=== PATIENT | male | born 1980 | race Caucasian/White ===

== ENCOUNTER 2020-06-23 08:08 | Emergency (ER) | payer BC, SELFPAY ==
[2020-06-23 08:10] VITALS: BP 163/107; PULSE 72; RESP 16; TEMP 35.6; O2SAT 98; BMI 17.2
--- NOTE | 2020-06-23 08:21 | CT_ITS ---
STUDY: CT ABDOMEN AND PELVIS WITHOUT CONTRAST REASON FOR EXAM: Male, 39 years old. flank pain following a fall. RADIATION DOSAGE (If Supplied By Facility): CTDIvol = ( 9.55 ) mGy, DLP = ( 634.50 ) mGycm TECHNIQUE: Transaxial images were obtained from the dome of the diaphragm to the symphysis pubis without oral contrast, and without intravenous contrast. Sagittal and coronal images were reconstructed. Individualized dose optimization techniques were used for this CT. COMPARISON: Comparison is made with prior study dated 10/21/2009. FINDINGS: The visualized lung bases are unremarkable. The visualized portions of the heart are within normal limits. Normal liver. Normal gallbladder and extrahepatic biliary system. Normal spleen. Normal pancreas. Normal bilateral adrenal glands. Several tiny nonobstructive right intrarenal calculi. Mild degree of left hydronephrosis and left hydroureter due to a 4.3 mm calculus at the left ureterovesical junction. Normal visualized stomach. Normal small intestine. Normal colon. The patient is status post appendectomy. Normal abdominal aorta. Normal inferior vena cava. Normal retroperitoneum. Normal urinary bladder. There are prostatic calcifications. There is a moderate-sized left-sided inguinal hernia containing adipose tissue. Small umbilical hernia. There are mild degenerative changes of the visualized lumbar spine. Straightening of the normal lumbar lordosis. CT/Abdomen/Pelvis without Cont IMPRESSION: 4.3 mm calculus at the left ureterovesical junction with the left hydronephrosis and hydroureter. Nonobstructive right intrarenal calculi. Electronically Signed: Ollie Crawford MD at 9:10 EDT , Service support ,
--- NOTE | 2020-06-23 08:22 | ED.VIS.GEN ---
History of Present Illness Chief Complaint: Male Pain/Injury Narrative: Patient presents with left flank pain left abdominal pain radiating into his penis and testicle that started just a few hours ago. No fever or chills. No right-sided pain. He has some nausea but no vomiting he has no constipation or diarrhea. He has had similar symptoms with kidney stones in the past. Pain is sharp and stabbing and colicky. Past medical history: Prior kidney stones Medications: None Social history: Noncontributory Review of systems: All systems negative except as indicated General: Denies: Fever Eyes: Denies: Visual changes - bilaterally ENT: Denies: Rhinorrhea, Sore throat Cardiovascular: Denies: Chest pain Respiratory: Denies: Dyspnea, Cough Gastrointestinal: Left-sided abdominal pain. Back: Back pain as in HPI Genitourinary: Has been complaining of darker urine than the past few days but no current dysuria or hematuria. He does have the feeling of urgency. He has radiation of the flank and abdominal pain to the left testicle. Musculoskeletal: Denies: Myalgias Skin: Denies: Rash Neurological: Denies: Headache, no focal weakness Psych: Reports: negative Hematologic: Denies: Easy bruising, Easy bleeding Physical exam General: She is pacing around the room he appears in distress. Head: Normocephalic, Atraumatic Eyes: Conjunctiva not pale ENT: Moist mucous membranes Neck: Supple, Nontender, No lymphadenopathy Cardiovascular: Regular rate, Regular rhythm Respiratory: No distress, CTA bilaterally Abdomen: Soft, there is left-sided lower abdominal pain. No guarding or rebound. Back: Nontender, Normal Inspection. Some left-sided CVA tenderness but it cannot be reproduced well. : He has no reproducible testicle pain or penile pain Extremities: Nontender, No edema Skin: Normal color, No rash Neurological: No focal deficit Past Medical History - Allergies and Home Meds Allergies/Adverse Reactions: Allergies No Known Allergies Allergy (Verified 06/23/20 08:09) Diagnostic/Tx/Re-eval - Medical Decision Making Patient is found to have a kidney stone that is less than 5 mm he is now significantly improved. There is no evidence of infection I will refer to otherwise I will discharge him with analgesics. He was educated about kidney stones. ED Disposition - Plan for ED Patient: Disposition: Home or Assisted Living Diagnosis: Kidney stone on left side Instructions: ED Kidney Stone w/ Colic Prescriptions: Oxycodone HCl/Acetaminophen [Percocet 5/325] 1 tablet PO Q6H PRN PRN 3 Days #12 tab PRN Reason: Pain Prescription Printed Referrals: Gustavo Quinonse MD [Primary Care Provider] - Mario Covarrubias MD [STAFF PHYSICIAN] - 2 Days
[2020-06-23] MEDS: Morphine 4 MG/ML Syringe IV (08:32)
[2020-06-23] MEDS: Ondansetron 4 MG/2 ML Vial IV (08:33)
[2020-06-23] MEDS: Ketorolac 15 MG/ML Vial IV (08:33)
[2020-06-23] MEDS: 0.9% Normal Saline 1,000 ML 1000 ML IV (08:33)
[2020-06-23 08:49] LABS: Mucous, Urine 0 SEEN /hpf (<or=2+); White Blood Cells 0 SEEN /hpf (0-5)
[2020-06-23 08:50] LABS: Absolute Lymphocyte Count 1.65 X10^3/uL (0.83-4.51); Absolute Neutrophil Count 3.7 X10^3/uL (2.0-7.7); Basophil# 0.04 X10^3/uL; Basophil% 0.7 % (0-1); Eosinophil# 0.22 X10^3/uL; Eosinophils% 3.7 % (0-5); Hematocrit 42.8 % (40-54); Hemoglobin 14.7 g/dL (13.0-16.5); Lymphocyte # 1.65 X10^3/ul (4.0); Lymphocyte % 27.4 % (19-41); Mean Corp Hgb Conc 34.3 g/dL (32-36); Mean Corpuscular Hgb 29.3 pg (27.0-32.0); Mean Corpuscular Volume 85.4 fL (80-94); Mean Platelet Vol. 10.2 fl (6.2-12.0); Monocyte# 0.42 X10^3/uL; NRBC Flagged by Analyzer 0 % (0-5); Neutrophil # 3.68 X10^3/uL (2.7-7.7); Platelet Count 247 K/mm3 (150-450); RBC Distribution Width CV 13.1 % (11.6-14.6); RBC Distribution Width SD 39.8 fl (35.1-43.9); Red Blood Count 5.01 M/mm3 (4.6-6.2)
[2020-06-23 08:51] LABS: Color, Urine Yellow (Yellow); Glucose, Dipstick Normal (Normal); Ketone-Dipstick Negative (Negative); Leukocyte Esterase-Dipstick Negative /ul (Negative); Nitrite-Dipstick Negative (Negative); Occult Blood-Urine 250 /ul (Negative); Protein-Dipstick 30 mg/dl (Negative); Urine Bilirubin Dipstick Negative (Negative); Urine Clarity Cloudy (Clear); Urine Urobilinogen Normal (Normal)
[2020-06-23 08:59] LABS: Red Blood Cells-Urine > 100 SEEN /hpf (0-5)
[2020-06-23 09:00] LABS: Bacteria RARE /hpf (None Seen); Squamous Epithelial Cells - UA 0-5 SEEN /hpf (0-5)
[2020-06-23 09:09] LABS: AST(SGOT) 13 U/L (15-37); Alanine Aminotransfer ALT/SGPT 31 U/L (16-61); Albumin, Serum 3.9 g/dL (3.2-5.0); Alkaline Phosphatase 76 U/L (45-117); Anion Gap 5 (5-15); BUN 12 mg/dL (7-18); BUN/Creat Ratio 10.3 RATIO (10-20); Calcium,Total 8.7 mg/dL (8.5-10.1); Chloride 106 mmol/L (98-107); Creatinine, Serum 1.17 mg/dL (0.70-1.30); EST Glomerular Filtration Rate 73 mL/min (>60); Est Glom Filt Rate - Afr Amer 88 mL/min (>60); Estimated Creatinine Clearance 75.21 ml/min; Globulin 3.8 g/dL (2.2-4.2); Glucose 119 mg/dL (74-106); Potassium 3.8 mmol/L (3.5-5.1); Protein, Total 7.7 g/dL (6.4-8.2); Sodium Level 138 mmol/L (136-145)
== END 2020-06-23 10:57 | disposition home or self-care (01) ==
PROVIDERS: Emergency Provider Emergency Medicine; PCP Family Medicine
DX: N20.0 Calculus of kidney (principal); Z87.442 Personal history of urinary calculi
CPT/HCPCS: 74176; 80053; 81001; 85025; 96361; 96374; 96375; 99282; J7030; A4216; J2405

== ENCOUNTER → 2020-07-07 16:59 | Outpatient (CLI) | payer BC, SELFPAY ==
[2020-06-23 08:10] VITALS: BMI 17.2
--- NOTE | 2020-07-07 17:10 | RAD_ITS ---
INDICATION: CALCULUS OF KIDNEY EXAMINATION/TECHNIQUE: X-RAY - XR Abdomen 1 View COMPARISON: None FINDINGS: BOWEL GAS PATTERN: Non-obstructive. No bowel or stomach distention. FREE AIR: Not assessed on a single supine view. ORGANOMEGALY: Not seen. CALCIFICATIONS: A 2 mm and 3 mm stone project over the right kidney. LOWER CHEST: No acute pathology. BONES AND SOFT TISSUES: No acute pathology. RAD/Abdomen Single View IMPRESSION: A 2 mm and 3 mm stone project over the right kidney. No stones seen on the left side. Electronically Signed: Bran Goetz MD at 18:19 EDT Tel , Service support ,
== END ==
PROVIDERS: PCP Family Medicine; Referring Provider Urology; Visit Provider Urology
DX: N20.1 Calculus of ureter (principal)
CPT/HCPCS: 74018

== ENCOUNTER → 2020-07-07 17:16 | Outpatient (CLI) | payer BC, SELFPAY ==
[2020-06-23 08:10] VITALS: BMI 17.2
== END ==
PROVIDERS: PCP Family Medicine; Referring Provider Urology; Visit Provider Urology
DX: Z03.818 Encounter for observation for suspected exposure to other biological agents ruled out (principal)
CPT/HCPCS: 87635; C9803; U0002

== ENCOUNTER 2022-04-22 11:04 | Day surgery (SDC) | payer OTHER, SELFPAY ==
[2022-04-22 11:38] VITALS: BP 124/68; PULSE 63; RESP 16; TEMP 36.9; O2SAT 96; BMI 28.1
--- NOTE | 2022-04-22 11:50 | DCINST_ITS ---
Discharge Instructions Procedure General Surgery Diet Discharge Diet: Light diet - advance as tolerated (if you have questions about your diet instructions, please talk to you doctor.) Activity Discharge Activity: May Not Drive (for 3-5 days or while taking narcotic pain medicine.) May shower in (days): 1 Lifting Restrictions: 10 pounds Dressing / Incision Call your doctor if your incision/area has: Continuous Slow Oozing, Sudden Increased Bleeding, Increased Pain/ Swelling, Increased Redness and Foul Smelling Discharge Call your doctor if you observe: Fever of 101 or Higher Suture Line Care: Avoid Pulling/Pushing and Avoid Pinching/Bending Additional Dressing/Incision Instructions:: Change or remove dressing in 4 days. Leave steri-strips in place for 1 week. Follow Up Care Please Follow Up With: Collin Mueller MD When: Call [phone] to make an appointment to be seen in about 10 days. Test Results: Test results from this visit will be discussed in further detail at your follow- up appointment, if applicable. Discharge Plan Admission Attending Provider: Collin Mueller Primary Care Provider: Gustavo Quinones Discharge Orders/Prescriptions Prescriptions: No Action metoprolol succinate 50 mg tablet extended release 24 hr 50 mg PO DAILY sumatriptan succinate 50 MG tablet 50 mg PO .X1 PRN Referrals / Follow Up: Gustavo Quinones MD [Primary Care Provider] - Disposition Disposition (needs filled in before D/C Order can be placed): Home, Self Care
--- NOTE | 2022-04-22 11:50 | HP.PCM_ITS ---
History and Physical Date of Admission: 04/22/22 Visit Reasons:?INGUINAL HERNIA Chief Complaint: inguina hernia Allergies No Known Allergies Allergy (Verified 03/19/22 15:30) Medications sumatriptan succinate 50 mg tablet 50 mg PO .X1 PRN Check with primary doctor 06/23/20 [History Confirmed 06/23/20] metoprolol succinate 50 mg tablet,extended release 24 hr 50 mg PO DAILY 03/19/22 [History Confirmed 03/19/22] PFSH Social History Smoking Status:? Never smoker HPI HPI HPI: 41-year-old gentleman is being referred by Dr. Gustavo Quinones for surgical consultation regarding a suspected right inguinal hernia.? The patient made comment of it to Dr. Gustavo Quinones with a bulge that was reducible.? A written copy surgical consult recommendations will return to Dr. Quinones. 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 He has noted about a left inguinal hernia for a period of time but now it is enlarging and becoming symptomatic.? He is still able to reduce it. He has had back surgery in the past which has been less than completely successful.? He has had no abdominal surgery.? He has no nocturia.? He otherwise feels that he is good good health other than hypertension which is being appropriately treated medically ROS General General: No weight change, appetite, fatigue, colon cancer, breast cancer or weakness HEENT HEENT: No difficulty swallowing, eye injury, eye surgery, swollen glands or hoarseness Endo Endocrine: No thyroid disease, diabetes mellitus, thyroid cancer, Hair loss, heat intolerance or cold intolerance Skin Skin: No rash or changing moles Musc Musculoskeletal: Yes back problems; No arthritis, rheumatoid arthritis, gout or joint pain Cardio Cardiovascular: Yes high blood pressure; No murmur, pacemaker, heart disease, atrial fibrillation, heart attack, heart st ent, palpitations, shortness of breat with exertion or chest pain Psych Psychiatric: No depression, anxiety or hearing voices Resp Respiratory: No shortness of breath, No sleep apnea, No cough, No COPD, No asthma, No emphysema and No wheezing Gastro Gastrointestinal: No abdominal pain, No nausea or vomiting, No diarrhea, No constipation, No blood in stool, No acid reflux, No hemorrhoids, No ulcers, No gallbladder problem and No black,tarry stools Casimiro Hematologic: No blood thinners, No blood disorders, No bleeding, No anemia and No blood clots Neuro Neurologic: No system reviewed and no additional complaints, except as documented, No as per HPI, No abnormal gait, No abnormal hearing, No abnormal movements, No abnormal speech, No behavioral changes, No burning sensations, No confusion, No convulsions, No disequilibrium, No dizziness, No localized weakness, No frequent falls, No headache(s), No lack of coordination, No loss of vision, No memory loss, Yes numbness, No other visual disturbances, No radicular pain, No restless legs, No sensory deficit, No syncope, Yes tingling, No tremor(s), No weakness and No other Exam Const General: cooperative, healthy appearing and comfortable [facility] Head: normal to inspection Eyes General: appearance normal, both eyes and all related structures Neck Neck: normal visual inspection Chest Chest palpation & inspection: normal inspection of the chest Resp Effort & Inspection: normal respiratory effort Auscultation: clear to auscultation bilaterally Cardio Rate: regular rate Rhythm: regular rhythm GI Inspection: normal to inspection Other: Soft, nontender, no hepatosplenomegaly Other: Testicles are descended.? No focal mass.? Right groin solid and intact.? Left side herniated but reducible Skin General: no rashes or lesions noted Neuro General: patient alert, patient awake and patient oriented x3 Extrem General: normal to inspection Psych Appearance: grossly normal Assessment and Plan Assessment and Plan (1) Inguinal hernia of left side without obstruction or gangrene: ?Status:?Acute ?Plan: I recommended the patient a laparoscopic left inguinal hernia repair with mesh.? I have discussed the technique, benefit, risk and alternatives.? He has had an opportunity to ask and have questions answered.? He is aware that he will require period of time off of work and that resuming work would be light duty. We will try to schedule procedure at his discretion. I appreciate the opportunity of assisting with the surgical care Copy: Dr. Gustavo Mueller M.D., F.A.C.S. I have examined the patient and the H&P has been reviewed. There are no clinical changes since date of exam.
[2022-04-22] MEDS: Lactated Ringers 1,000 ML 15 ML IV ×2 (12:14→15:34)
[2022-04-22] MEDS: Cefazolin 2 GM in 0.9% Normal Saline 100 ML IV (13:43)
[2022-04-22] MEDS: Bupivacaine Mpf 0.5% 30 ML VIAL (13:52)
--- NOTE | 2022-04-22 14:42 | PCM.OPRPT ---
Report of Operation Date of Procedure: 04/22/22 Pre-Operative Diagnosis: Left inguinal hernia Post-Operative Diagnosis: Left inguinal hernia with cord lipoma Surgery/Procedure Performed:: Laparoscopic left inguinal herniorrhaphy utilizing left Bard large 3D max mesh, lot number [id number], reference [id number], expiry date 06/08/2026 Description of Surgical Findings:: Timeout and informed consent was obtained. 41-year-old gentleman was taken to the operating placed on the table underwent general endotracheal intubation esthesia. The abdomen was sterilely prepped and draped. 0.5% Marcaine was used as a local anesthetic. Skin sites were. Excised. Throughout the procedure a total of 30 cc was used. A vertical infraumbilical incision was created holding sutures of 0 Vicryl placed I tried inserting a varies needle but the tissue was very firm and so I converted over to an a son direct open technique dissecting down to layers to I got the peritoneum opened that there was no bowel involvement placed a 10 mm trocar. No evidence of trocar injuries. Under direct visualization 5 mm ports were placed in the right left lower quadrants. Using laparoscopic visualization an ileal inguinal nerve block was performed on the left. There was a indirect inguinal hernia on the left. There was no hernia noted on the right. The peritoneum was incised superior and medial to the internal ring. The preperitoneal plane was then formed with blunt dissection and sharp dissection were indicated. Cord lipoma was identified and tediously carefully this was dissected free. Where needed hemostasis obtained with Hem-o-madelyn clips. With blunt dissection the direct space indirect space and femoral area was clearly identified. A Bard large 3D max mesh was placed was to cover all 3 potential defect areas. It was secured in place medially superiorly and laterally with secure strap. I felt that I got very good positioning and excellent coverage particularly of the current indirect defect. The peritoneum was then approximated to itself using secure strap and Hem-o-madelyn clips. Complete obliteration to the mesh was achieved. The abdomen was allowed to deflate of the CO2. The fascia at the umbilicus approximated with 2 [id number] sutures of 0 Vicryl. Skin edges approximated opted for Monocryl subdermal stitches. Steri-Strips Telfa OpSite dressings applied. Sponge and instrument and needle counts were reported to the surgeon to be correct. Specimens none. Drains none. Blood loss minimal. The patient was taken to the recovery room in satisfied condition without apparent complication Collin Mueller M.D., F.A.C.S. Surgeon: Collin Mueller Type of Anesthesia: General and Local Anesthesiologist: Julio Cesar Menchaca
[2022-04-22] MEDS: Sugammadex Sodium 200 MG/2 ML VIAL IV (14:45)
[2022-04-22 15:00] VITALS: BP 115/68; BP 124/68; PULSE 70; RESP 16; TEMP 36.4; O2SAT 92
[2022-04-22 15:15] VITALS: BP 112/70; BP 124/68; PULSE 79; RESP 16; O2SAT 93
[2022-04-22 15:30] VITALS: BP 119/77; BP 124/68; PULSE 74; RESP 16; TEMP 36.3; O2SAT 95
[2022-04-22] MEDS: HYDROcodone Bitartrate/Apap 5/325 Tablet PO (15:57)
[2022-04-22 16:24] VITALS: BP 104/65; BP 124/68; PULSE 69; RESP 16; TEMP 36.2; O2SAT 99
== END 2022-04-22 16:41 | disposition home or self-care (01) ==
LOC: SDC 11:10 → AC 11:21
PROVIDERS: PCP Family Medicine; Referring Provider Surgery; Visit Provider Surgery
PROC: (CPT 49650; principal; 2022-04-22 12:55)
DX: K40.90 Unilateral inguinal hernia, without obstruction or gangrene, not specified as recurrent (principal); D17.6 Benign lipomatous neoplasm of spermatic cord; I10 Essential (primary) hypertension; Z90.49 Acquired absence of other specified parts of digestive tract
CPT/HCPCS: 49650; 55520; 00840; J7120; C1781; J2405